=== PATIENT | female | born 1955 | race Caucasian/White ===

== ENCOUNTER 2024-08-04 17:57 | Emergency (ER) | payer OTHER, SELFPAY ==
--- NOTE | 2024-08-04 18:00 | ECG_ITS ---
Test Reason : CHEST PAIN Blood Pressure : / mmHG Vent. Rate : 103 BPM Atrial Rate : 103 BPM P-R Int : 158 ms QRS Dur : 078 ms QT Int : 322 ms P-R-T Axes : 001 003 055 degrees QTc Int : 421 ms Sinus tachycardia Low voltage QRS Cannot rule out Anterior infarct , age undetermined Abnormal ECG No previous ECGs available Referred By: El Daly Electronically Signed By:ADALID MCKAY
[2024-08-04 18:28] VITALS: BP 135/79; PULSE 106; RESP 18; TEMP 37.2; O2SAT 97; BMI 22.7
--- NOTE | 2024-08-04 18:35 | ED.GENADULT ---
HPI - General Adult General Chief complaint: General Medical Stated complaint: Chest Pains/SOB History of Present Illness HPI narrative: Patient left without completing treatment by ED provider Related Data Allergies Allergy/AdvReac Type Severity Reaction Status Date / Time No Known Allergies Allergy Verified 08/04/24 18:32 [No Known Allergies*] PMF Social History Social History Advance Directives: No Advance Directives Information Provided: No Do you have a plan to hurt others: No Plan Physical Exam ED Vital Signs: Vital Signs - 24 hr 08/04/24 18:28 Temperature 99.0 F Pulse Rate 106 H Respiratory Rate 18 Blood Pressure 135/79 Pulse Oximetry 97 Oxygen Delivery Method Room Air BMI result Body Mass Index 22.7 Course Course Course Narrative: RME: 68 yold female presents to ED for coughing, body aches, fever, chills, headache and loss of appetite. EKG or in triage SARs strep ordered. Medical Decision Making Lab Data 08/04/24 20:01 08/04/24 20:01 Labs: Lab Results 08/04/24 Range/Units 20:01 WBC 5.3 (4.8-10.8) X10*3/uL RBC 5.05 (4.20-5.50) X10*6/uL Hgb 14.7 (12.0-16.0) g/dl Hct 43.4 (37.0-47.0) % MCV 85.9 (80.0-98.0) fL MCH 29.1 (27.0-33.0) pg MCHC 33.9 (31.0-35.0) g/dl RDW 12.7 (11.0-16.0) % Plt Count 217 (160-400) X10*3/uL MPV 9.9 (9.4-12.3) fL Immature Gran % (Auto) 0.2 (0.0-0.4) % Neut % (Auto) 62.4 (45-73) % Lymph % (Auto) 27.3 (20-40) % Preston % (Auto) 8.6 (2-11) % Eos % (Auto) 1.1 (0-4) % Baso % (Auto) 0.4 (0-2) % Lymph # (Auto) 1.5 (1.2-4.9) X10*3/uL Preston # (Auto) 0.5 (0.1-1.2) X10*3/uL Eos # (Auto) 0.1 (0.0-0.4) X10*3/uL Baso # (Auto) 0.0 (0.0-0.2) X10*3/uL Abs Immat Gran (auto) 0.01 (0.00-0.03) X10*3/uL Absolute Neuts (auto) 3.3 (2.0-8.3) x10*3/uL Absolute Nucleated RBC 0.000 (0.0-0.012) X10*3/uL Nucleated RBC % (auto) 0.0 (0.0-0.2) /100WBC PT 10.4 L (10.9-12.4) SEC INR 0.9 (0.9-1.1) APTT 31.0 (26.0-36.8) SEC Sodium 138 (135-145) mmol/L Potassium 4.0 (3.3-5.1) mmol/L Chloride 102 (96-108) mmol/L Carbon Dioxide 24 (22-29) mmol/L Anion Gap 16 (12-20) BUN 13 (9-16) mg/dL Creatinine 0.73 (0.5-1.4) mg/dL Estim Creat Clear Calc 78.1 Estimated GFR > 60 Random Glucose 105 (60-115) mg/dL Calcium 9.2 (8.4-10.2) mg/dL Total Bilirubin 0.4 (0.0-1.0) mg/dL AST 43 H (5-31) U/L ALT 37 H (0-31) U/L Alkaline Phosphatase 71 (39-117) U/L Troponin I High Sens 3.1 (<3.5-17.0) ng/L Total Protein 7.4 (6.5-8.0) g/dL Albumin 4.1 (3.5-5.0) g/dL Influenza Type A (PCR) NEGATIVE (Negative) Influenza Type B (PCR) NEGATIVE (Negative) RSV RNA Qual (PCR) NEGATIVE (Negative) SARS-CoV-2 RNA (RT-PCR) NEGATIVE (Negative) S. pyogenes GrpA SANAM Negative (Negative) Discharge Plan Discharge Clinical Impression: Chest pain Patient Disposition: Left W/O Completing Treatment Discharge Date/Time: 08/04/24 23:42
[2024-08-04 20:06] LABS: MANUAL DIFF FLAG NO
[2024-08-04 20:07] LABS: Basophils Percent Auto 0.4 % (0-2); Eosinophils Absolute Auto 0.1 X10*3/uL (0.0-0.4); Eosinophils Percent Auto 1.1 % (0-4); Hematocrit 43.4 % (37.0-47.0); Hemoglobin 14.7 g/dl (12.0-16.0); Imm Gran Abs Auto 0.01 X10*3/uL (0.00-0.03); Imm Gran Pct Auto 0.2 % (0.0-0.4); Lymphocytes Absolute Auto 1.5 X10*3/uL (1.2-4.9); Lymphocytes Percent Auto 27.3 % (20-40); Mean Corpuscular HGB Conc 33.9 g/dl (31.0-35.0); Mean Corpuscular Hemoglobin 29.1 pg (27.0-33.0); Mean Corpuscular Volume 85.9 fL (80.0-98.0); Mean Platelet Volume 9.9 fL (9.4-12.3); Monocytes Absolute Auto 0.5 X10*3/uL (0.1-1.2); Monocytes Percent Auto 8.6 % (2-11); Neutrophils Absolute Auto 3.3 x10*3/uL (2.0-8.3); Neutrophils Percent Auto 62.4 % (45-73); Platelet Count 217 X10*3/uL (160-400); Red Blood Count 5.05 X10*6/uL (4.20-5.50); Red Cell Distribution Width 12.7 % (11.0-16.0); White Blood Count 5.3 X10*3/uL (4.8-10.8)
[2024-08-04 20:14] LABS: INTERNATIONAL NORM RATIO 0.9 (0.9-1.1); Prothrombin Time 10.4 SEC (10.9-12.4)
[2024-08-04 20:21] LABS: Alanine Aminotransferase 37 U/L (0-31); Albumin Level 4.1 g/dL (3.5-5.0); Alkaline Phosphatase 71 U/L (39-117); Anion Gap 16 (12-20); Aspartate Amino Transferase 43 U/L (5-31); Bilirubin Total 0.4 mg/dL (0.0-1.0); Blood Urea Nitrogen 13 mg/dL (9-16); Calcium 9.2 mg/dL (8.4-10.2); Carbon Dioxide 24 mmol/L (22-29); Chloride 102 mmol/L (96-108); Creatinine Clr Calc Pharmacy 78.1; Estimated Glomerular Filt Rate > 60; Glucose Random 105 mg/dL (60-115); Sodium 138 mmol/L (135-145); Total Protein 7.4 g/dL (6.5-8.0)
[2024-08-04 20:28] LABS: Troponin-I High Sensitivity 3.1 ng/L (<3.5-17.0)
[2024-08-04 20:29] LABS: IDNOW Serial# 58CA691E; Strep A Nucleic Acid Negative (Negative)
[2024-08-04 20:46] LABS: Influenza A PCR NEGATIVE (Negative); Influenza B PCR NEGATIVE (Negative); Resp Syncy Virus RNA Qual PCR NEGATIVE (Negative); SARS COV2 PCR INHOUSE NEGATIVE (Negative)
== END 2024-08-04 23:42 | disposition left against medical advice (07) ==
PROVIDERS: Physician Assistant; Emergency Provider Internal Medicine; PCP Internal Medicine
DX: R07.89 Other chest pain (principal); R06.02 Shortness of breath; M79.10 Myalgia, unspecified site; R50.9 Fever, unspecified; R51.9 Headache, unspecified; R05.9 Cough, unspecified; Z79.899 Other long term (current) drug therapy; Z03.818 Encounter for observation for suspected exposure to other biological agents ruled out
CPT/HCPCS: 0241U; 36415; 80053; 84484; 85025; 85610; 85730; 87651; 93005; 99283

== ENCOUNTER → 2024-08-04 18:00 | Outpatient (BNV) | payer OTHER, SELFPAY | PROVIDERS: Emergency Provider Internal Medicine; PCP Internal Medicine; Visit Provider Internal Medicine | DX: R07.9 Chest pain, unspecified (principal); R00.0 Tachycardia, unspecified; R94.31 Abnormal electrocardiogram [ECG] [EKG] | CPT/HCPCS: 93010 ==

== ENCOUNTER 2024-10-30 06:00 | Outpatient (REF) | payer OTHER, SELFPAY ==
[2024-10-30 06:11] LABS: MANUAL DIFF FLAG NO
[2024-10-30 07:42] LABS: Basophils Percent Auto 0.5 % (0-2); Eosinophils Absolute Auto 0.2 X10*3/uL (0.0-0.4); Eosinophils Percent Auto 2.7 % (0-4); Hematocrit 44.9 % (37.0-47.0); Hemoglobin 14.6 g/dl (12.0-16.0); Imm Gran Abs Auto 0.01 X10*3/uL (0.00-0.03); Imm Gran Pct Auto 0.2 % (0.0-0.4); Lymphocytes Absolute Auto 2.4 X10*3/uL (1.2-4.9); Lymphocytes Percent Auto 39.9 % (20-40); Mean Corpuscular HGB Conc 32.5 g/dl (31.0-35.0); Mean Corpuscular Volume 89.1 fL (80.0-98.0); Mean Platelet Volume 10.6 fL (9.4-12.3); Monocytes Absolute Auto 0.5 X10*3/uL (0.1-1.2); Monocytes Percent Auto 7.7 % (2-11); Platelet Count 257 X10*3/uL (160-400); Red Blood Count 5.04 X10*6/uL (4.20-5.50); Red Cell Distribution Width 13.4 % (11.0-16.0)
[2024-10-30 08:12] LABS: Alanine Aminotransferase 22 U/L (0-31); Albumin Level 4.2 g/dL (3.5-5.0); Alkaline Phosphatase 74 U/L (39-117); Anion Gap 10 (12-20); Aspartate Amino Transferase 21 U/L (5-31); Bilirubin Total 0.3 mg/dL (0.0-1.0); Blood Urea Nitrogen 16 mg/dL (9-16); Calcium 9.5 mg/dL (8.4-10.2); Carbon Dioxide 25 mmol/L (22-29); Chloride 111 mmol/L (96-108); Cholesterol 250 mg/dL (<200); Estimated Glomerular Filt Rate > 60; Glucose Fasting 93 mg/dL (60-99); HDL Cholesterol 52 mg/dL (>40); LDL Cholesterol Calculated 172 mg/dL (<100); Potassium 4.4 mmol/L (3.3-5.1); Sodium 142 mmol/L (135-145); Triglycerides 131 mg/dL (<150)
[2024-10-30 08:44] LABS: Vitamin D 25-OH Total 50.4 ng/mL (>30)
== END 2024-10-30 06:01 | disposition home or self-care (01) ==
LOC: HO.LAB 06:00
PROVIDERS: PCP Internal Medicine; Referring Provider Internal Medicine; Visit Provider Internal Medicine
DX: I73.00 Raynaud's syndrome without gangrene (principal); M81.0 Age-related osteoporosis without current pathological fracture
CPT/HCPCS: 36415; 80053; 80061; 82306; 85025

== ENCOUNTER 2024-12-17 13:49 | Outpatient (REF) | payer OTHER, SELFPAY ==
--- NOTE | ~2024-12-17 | MM_ITS ---
EXAMINATION: DXA BONE DENSITY AXIAL HISTORY: Z78.0 MENOPAUSAL STATE TECHNIQUE: [email or web address] Dual energy absorptiometry (DEXA) of the lumbar spine, total left hip, and femoral neck was performed. COMPARISON: There are no prior studies for comparison. FINDINGS: The bone mineral density of the lumbar spine is 1.232 with a T-score of 0.4, and a Z-score of 2.0. This is indicative of normal bone mineral density. The bone mineral density of the left total hip is 0.949 with a T-score of -0.5, and a Z-score of 0.8. This is indicative of normal bone mineral density. The bone mineral density of the left femoral neck is 0.809 with a T-score of -1.6, and a Z-score of -0.1. This is indicative of osteopenia. FRACTURE RISK: The FRAX index suggests a risk of major osteoporotic fracture of 23.8%, and of hip fracture 4.0%. MM/XR DEXA axial skeleton IMPRESSION: Based on bone mineral density, and according to World Health Organization (WHO) criteria, the diagnosis is consistent with osteopenia. All bone density values are in grams per centimeter squared (g/cm2). Statistically, 68% of repeat scans fall within 1 SD (+/- 0.010 g/cm2 for AP spine L1-L4) and 1 SD (+/- 0.012 g/cm2 for femur total) FRAX is a trademark of the [employer], a World Health Organization (WHO) Collaborating Center. Electronically signed by: Sp Owens MD 12/17/2024 03:15 PM EDT
== END 2024-12-17 13:50 | disposition home or self-care (01) ==
LOC: HO.MAMMO 13:49
PROVIDERS: PCP Internal Medicine; Referring Provider Internal Medicine; Visit Provider Internal Medicine
DX: Z12.31 Encounter for screening mammogram for malignant neoplasm of breast (principal); Z13.820 Encounter for screening for osteoporosis; Z78.0 Asymptomatic menopausal state
CPT/HCPCS: 77063; 77067; 77080

== ENCOUNTER → 2024-12-17 14:30 | Outpatient (BNV) | payer OTHER, SELFPAY | PROVIDERS: PCP Internal Medicine; Referring Provider Internal Medicine; Visit Provider Radiology Diagnostic Radiology | DX: E28.39 Other primary ovarian failure (principal) | CPT/HCPCS: 77080 ==

== ENCOUNTER 2025-01-15 13:44 | Outpatient (REF) | payer OTHER, SELFPAY ==
--- NOTE | ~2025-01-15 | MM_ITS ---
EXAMINATION: MM DIAGNOSTIC DIGITAL MAMMOGRAPHY, RIGHT CLINICAL INFORMATION: Call back from screening for grouped calcifications in the upper outer right breast posterior depth. COMPARISON: Mammography: [facility] on PACS. TECHNIQUE: Digital mammography is performed in craniocaudal and mediolateral oblique views along with computer-aided detection (CAD). FINDINGS: The breasts are heterogeneously dense, which may obscure small masses (ACR BI-RADS breast composition Category c). There are grouped pleomorphic calcifications in the upper outer quadrant posterior depth. No suspicious masses or other abnormal findings. Results are discussed with the patient at time of visit. MM/MM added views RT IMPRESSION: Grouped pleomorphic calcifications in the upper outer quadrant posterior depth. Recommend histology with stereotactic core needle biopsy at this time. The findings and recommendations were discussed with the patient the procedure will be scheduled. ASSESSMENT: BI-RADS BI-RADS 4 - Suspicious finding RECOMMENDATION: Biopsy recommended This patient's information was entered into a reminder system with a target due date for their next mammogram. Electronically signed by: Claudia Fitzgerald DO 01/15/2025 02:38 PM EDT
== END 2025-01-15 13:45 | disposition home or self-care (01) ==
LOC: HO.MAMMO 13:44
PROVIDERS: PCP Internal Medicine; Visit Provider Internal Medicine
DX: R92.1 Mammographic calcification found on diagnostic imaging of breast (principal)
CPT/HCPCS: 77065

== ENCOUNTER → 2025-01-15 14:00 | Outpatient (BNV) | payer OTHER, SELFPAY | PROVIDERS: PCP Internal Medicine; Visit Provider Internal Medicine | DX: R92.1 Mammographic calcification found on diagnostic imaging of breast (principal) | CPT/HCPCS: 77061; 77065 ==

== ENCOUNTER 2025-01-22 08:12 | Outpatient (AMB) | payer OTHER, SELFPAY ==
--- NOTE | 2025-01-22 08:14 | A.OFFVIS_ITS ---
Vital Signs 01/22/25 08:22 Height 5 ft 9 in Weight 154 lb BMI 22.7 BP 133/84 Blood Pressure Location Rt brachial Position Sitting Pulse 69 Intake Visit Reasons: Stereo BX (R) Breast for calcification Intake Note: Patient referred for stereo bx upper outer right breast posterior depth calcification. Patient c/o: bump on Rt br that has always been there. Denies pain, tenderness, nipple discharge. No family hx of breast CA. Bx scheduled 01-23-2025 @ 8am Bond Runner Required: No Accompanied by: Self / Same As Patient Allergies No Known Allergies (No Known Allergies*) Allergy (Verified 01/22/25 08:15) Medication List - Last Reconciled 01/22/25 by Murali Bills MD clonazepam 0.5 - 1 mg PO BEDTIME PRN mirtazapine 60 mg PO BEDTIME HPI HPI Stereo BX (R) Breast for calcification: Details: 69 year female referred for an abnormal mammogram. She had undergone a screening mammogram last month and was noted to have pleomorphic calcifications on the right breast at the upper outer quadrant. She was recommended to therefore undergo stereotactic biopsy. She did not any palpable mass Her menarche was at age of 13. She says that she was only one time but this was an . She had menopause at age of 49. She denies any family history of breast cancer. [facility] Medical History (Updated 01/22/25 @ 08:36 by Murali Bills MD) Anxiety Breast calcification, right Social History Alcohol intake: never Patient Tobacco Use Status: Never used Tobacco Review of Systems Const Denies chills and Denies fever(s) Card Denies chest pain, Denies dyspnea and Denies dyspnea on exertion Resp Denies cough, Denies dyspnea and Denies dyspnea on exertion GI Denies hematochezia and Denies change in bowel habits Denies hematuria Musc Denies back pain and Denies limited range of motion Neuro Denies focal weakness and Denies convulsions Psych Denies depression and Denies mood swings Physical Exam Vital Signs: Last Vital Signs Pulse 69 01/22/25 08:22 BP 133/84 01/22/25 08:22 BMI result Body Mass Index 22.7 Const General: comfortable and no acute distress Orientation/consciousness: patient oriented x3 Neck Neck: Yes no lymphadenopathy Chest Other: No palpable breast mass, no axillary lymphadenopathy nipple or skin changes Resp Auscultation: clear to auscultation bilaterally Cardio Rhythm: regular rhythm GI Palpation (GI): Soft to palpation, nontender and no guarding Neuro General: patient oriented x3 Assessment & Plan Assessment & Plan (1) Breast calcification, right: Code(s): R92.1 - Mammographic calcification found on diagnostic imaging of breast Category: Medical Plan: Her mammogram shows grouped pleomorphic calcifications in the upper outer quadrant a stereotactic biopsy was therefore recommended. I explained to her the technique of this procedure I will see her again in the office next week to discuss the path report. She says she understands the plan well. Orders: Orders MM stereotactic biopsy RT 01/21/25 R92.1 - Mammographic calcification found on diagnostic imaging of breast Coding Level of Care Code New Pt Level 3 (59694) Diagnoses Breast calcification, right R92.1
[2025-01-22 08:22] VITALS: BP 133/84; PULSE 69; BMI 22.7
== END 2025-01-22 08:38 | disposition home or self-care (01) ==
LOC: HO.HGS 08:12
PROVIDERS: PCP Internal Medicine; Visit Provider Surgery
DX: R92.1 Mammographic calcification found on diagnostic imaging of breast (principal)
CPT/HCPCS: 99203

== ENCOUNTER 2025-01-23 07:48 | Outpatient (REF) | payer OTHER, SELFPAY ==
--- NOTE | ~2025-01-23 | MM_ITS ---
EXAMINATION: STEREOTACTICALLY-GUIDED RIGHT BREAST BIOPSY CLINICAL INFORMATION: Grouped calcifications in the upper outer right breast here for stereotactic core needle biopsy. COMPARISON: [facility] on PACS. INFORMED CONSENT: After the details of the procedure, as well as the risks (including, but not limited to, bleeding, hematoma formation, and infection), benefits and alternatives (including doing nothing, short-interval follow up, and surgery) to the procedure were explained to the patient in detail and all of her questions were answered, informed written consent was obtained. TECHNIQUE/FINDINGS: A timeout was performed. The lesion intended for biopsy was identified stereotactically and targeted. The skin of the right breast was then cleansed with sterile solution. Using stereotactic guidance, aseptic technique, and 1% lidocaine with and without epinephrine for local anesthesia, a total of 6 cores were obtained through the targeted area with a 9-gauge vacuum-assisted Eviva core biopsy device from a superior approach. Specimen radiography reveals the targeted calcifications in the sampled tissue. At the completion of tissue sampling, a single top hat-shaped metallic clip was deposited at the biopsy site. Adequate sampling was achieved. The postprocedure 2-view direct digital mammogram reveals satisfactory positioning of the biopsy clip. The patient tolerated the procedure well and, after assuring adequate hemostasis, was discharged in good condition after reviewing postbiopsy breast care instructions. Final pathology results are pending. MM/MM stereotactic biopsy RT IMPRESSION: 1. Uncomplicated stereotactically-guided core biopsy of the right breast. The 2-view direct digital postprocedure mammogram reveals satisfactory positioning of the biopsy clip. 2. Final pathology results are pending. A separate report with final recommendations will be issued once these results are made available. Electronically signed by: Claudia Fitzgerald DO 01/23/2025 10:30 AM EDT
[2025-01-23] MEDS: Sodium Bicarbonate 8.4% 50 MEQ/50 ML VIAL SUBCUT (09:03)
[2025-01-23] MEDS: Lidocaine HCl 1 % 20 ML VIAL 4 ML SUBCUT (09:05)
[2025-01-23] MEDS: Lidocaine HCl 1%/Epi 1:100,000 10 ML VIAL 18 ML SUBCUT (09:06)
== END 2025-01-23 07:49 | disposition home or self-care (01) ==
LOC: HO.MAMMO 07:48
PROVIDERS: PCP Internal Medicine; Visit Provider Surgery
DX: R92.1 Mammographic calcification found on diagnostic imaging of breast (principal)
CPT/HCPCS: 19081; 88305; A4648; J2003; J2004

== ENCOUNTER → 2025-01-23 08:00 | Outpatient (BNV) | payer OTHER, SELFPAY | PROVIDERS: PCP Internal Medicine; Visit Provider Internal Medicine | DX: R92.1 Mammographic calcification found on diagnostic imaging of breast (principal) | CPT/HCPCS: 19081 ==

== ENCOUNTER 2025-02-03 09:38 | Outpatient (AMB) | payer OTHER, SELFPAY ==
--- NOTE | 2025-02-03 09:42 | A.OFFVIS_ITS ---
Vital Signs 02/03/25 09:49 Height 5 ft 8 in Weight 150 lb BMI 22.8 BP 129/84 Blood Pressure Location Lt brachial Position Sitting Pulse 71 Intake Visit Reasons: s/p Stereo BX (R) Breast for calcification Intake Note: Patient is seen in office for biopsy RESULTS following right breast for calcifications. Pt c/o:denies any concerns, seen results on portal Materials Clerk Required: No Accompanied by: Self / Same As Patient Allergies No Known Allergies (No Known Allergies*) Allergy (Verified 02/03/25 09:49) HPI HPI s/p Stereo BX (R) Breast for calcification: Details: Patient presents today for her biopsy results. She was initially referred for an abnormal screening mammogram 12/22 and was noted to have pleomorphic calcifications on the right breast at the upper outer quadrant. It was therefore recommended to undergo stereotactic biopsy. She had no palpable masses at that time. Her menarche was at age of 13. She had one followed by an . She had menopause at age of 49. She denies any family history of breast cancer. She underwent stereotactic right breast biopsy on 01/23/25. She reports some mild pain and bruising following. She currently denies any pain at the site. Pathology revealed benign breast tissue with stromal fibrosis, coarse calcifications and focal adenosis. [facility] Medical History Anxiety Breast calcification, right Social History Alcohol intake: never Patient Tobacco Use Status: Never used Tobacco Review of Systems Const All systems reviewed & are unremarkable except as noted in HPI and below Physical Exam Vital Signs: Last Vital Signs Pulse 71 02/03/25 09:49 BP 129/84 02/03/25 09:49 BMI result Body Mass Index 22.8 Const General: comfortable, no acute distress and alert Orientation/consciousness: patient oriented x3 Chest Other: right breast biopsy site at upper outer quadrant well healed without any surrounding ecchymosis or erythema, very mild induration to deep palpation, site nontender, no palpable breast masses Resp Effort & Inspection: normal respiratory effort Skin General skin exam: no rashes or lesions noted Neuro General: patient oriented x3 Results Reviewed Results Reviewed: Breast, right, biopsy: Benign breast tissue with stromal fibrosis, coarse calcifications and focal adenosis; no atypia or malignancy identified Assessment & Plan Assessment & Plan (1) Breast calcification, right: Code(s): R92.1 - Mammographic calcification found on diagnostic imaging of breast Category: Medical Plan 69 year old female found to have pleomorphic calcifications on the right breast at the upper outer quadrant on screening mammogram on 12/22. She underwent stereotactic right breast biopsy on 01/23/25 and pathology revealed benign breast tissue with stromal fibrosis, coarse calcifications and focal adenosis. No further intervention is currently needed. The biopsy site is healing well without evidence of infection. She can resume annual screening mammograms. All questions answered. She can follow up as needed. Coding Level of Care Code Tele Est Pt Level 3 (02987) Diagnoses Breast calcification, right R92.1
[2025-02-03 09:49] VITALS: BP 129/84; PULSE 71; BMI 22.8
== END 2025-02-03 10:09 | disposition home or self-care (01) ==
LOC: HO.HGS 09:39
PROVIDERS: PCP Internal Medicine; Visit Provider Physician Assistant Surgical
DX: R92.1 Mammographic calcification found on diagnostic imaging of breast (principal)
CPT/HCPCS: 99213